=== PATIENT | female | born 1955 | race Caucasian/White ===

== ENCOUNTER 2020-03-16 13:11 | Emergency (ER) | payer OTHER, SELFPAY ==
[2020-03-16] VITALS (8 sets, daily range): BP systolic 92–122; BP diastolic 36–60; PULSE 64–91; RESP 14–18; TEMP 36.6–37.5; O2SAT 93–99; BMI 34.8
--- NOTE | 2020-03-16 13:29 | XR_ITS ---
EXAMINATION: XR CHEST CLINICAL INFORMATION: Cough. COMPARISON: Chest 09/02/2019 TECHNIQUE: Frontal view of the chest was obtained. FINDINGS: The lungs are well-expanded with patchy opacity in both lung bases, new since 09/02/2019. Rest of lungs are expanded and clear. Heart size and pulmonary vascularity is normal. No gross bony abnormality seen. XR/XR chest 1V IMPRESSION: New bilateral lower lobe patchy opacity likely infiltrates.
--- NOTE | 2020-03-16 13:34 | ED_ITS ---
HPI - SOB/Dyspnea General Chief Complaint: Dyspnea Stated Complaint: Covid symptoms Time Seen by Provider: 03/16/20 13:29 Source: patient Mode of arrival: ambulatory Limitations: no limitations History of Present Illness HPI Narrative: has had a cough and breathing troubles for the past month, went to [facility] on called for positive COVID yesterday, visiting RN noted her RA sat was 89% referred to ED, on arrival she is 98% on RA, just completed steroids and told to stop antibiotics by PCP MD elicited complaint: shortness of breath and cough Pertinent past history: COPD and asthma Onset (ago): month(s) (1) Context: recent illness and smoke/fume exposure Timing: constant Severity: moderate Exacerbating factors: coughing Relieving factors: bronchodilators Known history of: COPD and asthma Associated symptoms: cough and wheezing Treatment prior to arrival: bronchodilator and other (was on steroids and azithromycin but stopped by PCP (just antibiotics stopped) she completed a burst) Related Data Allergies Allergy/AdvReac Type Severity Reaction Status Date / Time mirtazapine [From REMERON] Allergy Unknown NAUSEA & Verified 03/16/20 13:27 VOMITING venlafaxine [From EFFEXOR] Allergy Unknown NAUSEA & Verified 03/16/20 13:28 VOMITING ibuprofen [IBUPROFEN] AdvReac Intermediate STOMACH Verified 03/16/20 13:28 UPSET Review of Systems Review of Systems: Constitutional : No Fever, No Chills ENT/Mouth : No sore throat, No Rhinorrhea, No Swallowing Difficulty Eyes: No Eye Pain, No Swelling, No Redness Cardiovascular : No Chest Pain, positive SOB, No Orthopnea, noEdema Respiratory : No Cough, No Sputum, No Wheezing, positive dyspnea Gastrointestinal : No Nausea, No Vomiting, No Diarrhea, No abdominal Pain, No Hematochezia, No Melena Genitourinary : No Dysuria, No Urinary Frequency, No Hematuria Musculoskeletal : No joint pain, No Myalgias Skin : No Skin Lesions, No rash Neuro : No Weakness, No Numbness, No Dizziness, No Headache All other systems reviewed and are negative [facility] Past Medical History Attestation statement: The following information was validated with the patient. Medical History COPD (chronic obstructive pulmonary disease) Diabetes Diabetic neuropathy Heart murmur Hernia Lumbar disc herniation Social History Social History (Updated 03/16/20 @ 13:40 by Melba Russell DO) Alcohol intake: never Smoking Status: Current every day smoker Use of substances other than those prescribed or required for medical reasons: No Advance Directives: No Advance Directives Information Provided: Yes Physical Exam Vital Signs: Vital Signs: Last Vital Signs Temp 99.5 F 03/16/20 13:29 Pulse 91 03/16/20 15:02 Resp 18 03/16/20 14:00 BP 105/43 L 03/16/20 15:02 Pulse Ox 95 03/16/20 15:02 Body Mass Index 34.8 Appearance: Alert. Oriented X3. No acute distress. Eyes: Pupils equal, round and reactive to light. ENT: Pharynx normal. Neck: Normal inspection. Neck supple. CVS: Normal heart rate and rhythm. Pulses normal. Respiratory: No respiratory distress. Breath sounds slight diffuse end exp wheezes, 98% on RA Abdomen: Soft and nontender. Skin: Skin warm and dry. Normal skin color. Normal skin turgor. Extremities: No lower extremity edema. No calf ttp Neuro: Oriented X 3. No motor deficit. No sensory deficit. Course Course Course Narrative: patient is not hypoxic but reporteldy has no where to go due to her COVID status, CM aware STR planned admit this time. MDM - SOB/Dyspnea MDM Narrative Medical decision making narrative: 64 yo female with COPD and a smoker who comes in with 1 month of cough - just on steroids and told to stop her antibiotics, she is not hypoxic in no distress, has neb machine at home, will given INH 4 puffs, CXR, observation - cough is an issue for her so anti tussive as well Discharge Plan Discharge Clinical Impression: Pneumonia due to 2019-nCoV Instructions: COVID-19 (Coronavirus Disease 2019) (ED) Additional Instructions: return to ED for any worsening symptoms or concerns
[2020-03-16] MEDS: Albuterol Sulfate 90 MCG 8 GM INHALER 4 PUFF INHALE (13:53)
[2020-03-16] MEDS: Benzonatate 100 MG CAPSULE PO (14:01)
[2020-03-16] MEDS: Acetaminophen 325 MG TABLET 650 MG PO ×2 (14:36→21:54)
[2020-03-16] MEDS: HYDROcodone/Homat 5/1.5/5 ML 5 ML SYRUP PO (14:36)
--- NOTE | 2020-03-16 15:30 | MHC.CM.ED ---
Received case management consult from Dr Russell. Patient came to ER with shortness of breath. Was previously diagnosed Covid positive. Work up essentially negative. Physical therapy eval completed. Short term rehab is recommended. Patient is active with [facility] but receives no services from them. Due to being covid positive. Patient will be difficult to place. Referral broadcasted in [employer]. Patient verbalized understanding. Continue to monitor for d/c needs.
[2020-03-16] MEDS: Moxifloxacin HCl 0.5 % Oph Sol 3 ML DRPBTL 1 DROP EYE-RIGHT (21:53)
[2020-03-16] MEDS: rOPINIRole HCL 0.5 MG TABLET PO (21:54)
[2020-03-16] MEDS: Gabapentin 600 MG TABLET 1800 MG PO (21:54)
[2020-03-16] MEDS: OXcarbazepine 300 MG TABLET PO (22:00)
[2020-03-16] MEDS: Mirtazapine 15 MG TABLET PO (22:00)
--- NOTE | 2020-03-16 22:06 | PC.NURSE ---
All scheduled medications administered to patient EXCEPT Clonidine and Lisinopril. Pulse 64, BP 92/36. MD aware. NSR on cardiac monitor technician at this time. 93-94% oxygen on room air at this time. will continue to monitor.
[2020-03-17] VITALS (14 sets, daily range): BP systolic 90–138; BP diastolic 33–65; PULSE 58–100; RESP 12–27; TEMP 36.6–37.4; O2SAT 92–99
--- NOTE | 2020-03-17 00:53 | PC.NURSE ---
WHILE SLEEPING, PATIENT'S OXYGEN SATURATION DECREASED TO 80%. PATIENT ALERT & ORIENTED, RESPONSIVE TO VERBAL STIMULI WITH MINIMAL EFFORT. OXYGEN SATURATION INCREASED IMMEDIATELY AFTER BEING DIRECTED TO TAKE DEEP BREATHS. PULSE OXIMETER CHECKED/REAPPLIED. OXYGEN SATURATION NOW 95% ON ROOM AIR. BP CUFF ALSO ADJUSTED.
--- NOTE | 2020-03-17 04:16 | PC.NURSE ---
pt has been hydrating with ice water consistently. Pt's spo2 dropped to 77% while sleeping, pt woke easily and her spo2 improved to 90%. pt not in any distress, asked if she felt she needed a treatment. pt has mdi inhaler at bedside for prn use. pt reports that she is not experiencing any shortness of breath.
--- NOTE | 2020-03-17 05:38 | PC.NURSE ---
pt assisted to bathroom, steady gait and spo2 97% on 1 lpm o2. pt back in room, and in no distress. oxygen removed, spo2 94% while awake.
--- NOTE | 2020-03-17 05:43 | PC.NURSE ---
pt stopped taking antibiotics 2 days ago, per request of her pcp.
--- NOTE | 2020-03-17 06:07 | PC.NURSE ---
PT REQUESTING TYLENOL FOR CHRONIC BACK PAIN.
[2020-03-17] MEDS: Acetaminophen 325 MG TABLET 650 MG PO ×2 (06:15→14:21)
[2020-03-17] MEDS: Omeprazole 20 MG CAPSULE.DR PO ×2 (07:18→15:58)
--- NOTE | 2020-03-17 08:54 | MHC.CM.ED ---
Patient remains in ER. Attempting to find short term rehab placement that accepts positive covid patients. Continue to monitor for d/c needs.
[2020-03-17 09:04] LABS: MANUAL DIFF FLAG NO
[2020-03-17 09:10] LABS: Basophils Percent Auto 0.1 % (0-2); Eosinophils Absolute Auto 0.1 X10*3/uL (0.0-0.4); Eosinophils Percent Auto 0.7 % (0-4); Hematocrit 36.3 % (37-47); Hemoglobin 12.2 g/dl (12.0-16.0); Imm Gran Abs Auto 0.02 X10*3/uL (0.00-0.03); Imm Gran Pct Auto 0.3 % (0.0-0.4); Lymphocytes Absolute Auto 2.2 X10*3/uL (1.2-4.9); Lymphocytes Percent Auto 30.8 % (20-40); Mean Corpuscular HGB Conc 33.6 g/dl (31.0-35.0); Mean Corpuscular Hemoglobin 31.3 pg (27.0-33.0); Mean Corpuscular Volume 93.1 fL (80-98); Mean Platelet Volume 8.4 fL (9.4-12.3); Monocytes Absolute Auto 0.5 X10*3/uL (0.1-1.2); Monocytes Percent Auto 7.7 % (2-11); Neutrophils Absolute Auto 4.2 X10*3/uL (2.0-8.3); Neutrophils Percent Auto 60.4 % (45-73); Platelet Count 245 X10*3/uL (160-400); Red Cell Distribution Width 13.2 % (11.0-16.0)
[2020-03-17] MEDS: prednisoLONE Acetate 1 % Oph Susp 5 ML DRPBTL 1 DROP EYE-RIGHT ×2 (09:10→14:23)
[2020-03-17] MEDS: Cyclobenzaprine HCl 10 MG TABLET PO (09:11)
[2020-03-17] MEDS: Atorvastatin Calcium 80 MG TABLET PO (09:12)
[2020-03-17] MEDS: OXcarbazepine 300 MG TABLET PO (09:12)
[2020-03-17] MEDS: Aspirin 325 MG TABLET PO (09:12)
[2020-03-17] MEDS: Gabapentin 600 MG TABLET 1800 MG PO (09:12)
[2020-03-17] MEDS: Levothyroxine Sodium 150 MCG TABLET PO (09:12)
[2020-03-17] MEDS: rOPINIRole HCL 0.5 MG TABLET PO (09:47)
[2020-03-17] MEDS: predniSONE 5 MG TABLET PO (09:47)
[2020-03-17] MEDS: Moxifloxacin HCl 0.5 % Oph Sol 3 ML DRPBTL 1 DROP EYE-RIGHT ×2 (11:06→14:23)
--- NOTE | 2020-03-17 11:24 | MHC.CM.ED ---
[facility] unable to offer a bed. [facility] is able to offer. Met with patient. Patient is agreeable to going to [facility] but wants to drive her own car there. T/W explained that would not be safe or allowed. Patient verbalized understanding and will have daughter brick picker her car. [facility] will attempt to obtain insurance auth. Continue to monitor.
[2020-03-17 12:08] LABS: Anion Gap 13 (12-20); Blood Urea Nitrogen 6 mg/dL (9-16); Calcium 8.6 mg/dL (8.4-10.2); Carbon Dioxide 23 mmol/L (22-29); Chloride 101 mmol/L (96-108); Creatinine Clr Calc Pharmacy 95.7; Estimated Glomerular Filt Rate > 60; Glucose Random 89 mg/dL (60-115); Potassium 3.6 mmol/l (3.3-5.1); Sodium 133 mmol/L (135-145)
--- NOTE | 2020-03-17 12:10 | PC.NURSE ---
patient a&ox3, vss, pt sinus myriam 60s on library monitor, pt currently speaking with family on phone, will continue to monitor.
--- NOTE | 2020-03-17 13:54 | PC.NURSE ---
pt brought in lunch as requested
[2020-03-17] MEDS: HYDROcodone/Homat 5/1.5/5 ML 5 ML SYRUP PO (14:22)
--- NOTE | 2020-03-17 14:30 | MHC.CM.ED ---
Insurance auth has been obtained by [facility]. Patient can leave at 5pm. [facility] booked. Med nec with chart. Patient, Dr Russell and Jd DESHPANDE Aware. Continue to monitor for d/c needs.
--- NOTE | 2020-03-17 15:55 | PC.NURSE ---
patient a&ox3, vss, monitor worker nsr 70s-80s, patient c/o continued headache 09/16, will continue to monitor.
== END 2020-03-17 17:16 | disposition skilled nursing facility (03) ==
PROVIDERS: Emergency Provider Emergency Medicine; PCP Internal Medicine
DX: U07.1 COVID-19 (principal); J12.89 Other viral pneumonia; R05 Cough
CPT/HCPCS: 36415; 71045; 80048; 85025; 94640; 97162; 99284; 99285